=== PATIENT | female | born 1995 | race Caucasian/White ===

== ENCOUNTER 2022-05-13 20:17 | Emergency (ER) | payer BC ==
[~2022-05-13] VITALS: Ht 154.9 cm; Wt 61.2 kg
[2022-05-13 20:21] VITALS: BP_SYST 131
--- NOTE | 2022-05-13 21:50 | NUR ---
Pt brought by family, A&Ox4, pt presents to ER with R lower leg pain x 3 days, pt was sent by PCP to r/o DVT, skin pink and warm, cap refill <3, VSS.
--- NOTE | 2022-05-14 00:31 | NUR ---
Patient to ER CHAIR 1 to gown for evaluation. Side rails up. Report given to Jeanine WEISS(alesha).
--- NOTE | 2022-05-14 00:35 | NUR ---
PT AMB TO ED CHAIR 1 WITH CHARGE NURSE. REPORT FROM ISELA GUNN. PT C/O RLE PAIN X3 DAYS. FANI TRAUMA/ INJURY. RIGHT CALF WARM TO TOUCH. CAP REFILL LESS THAN 0.02SEC EXAM/EVAL PER ER MD
--- NOTE | 2022-05-14 00:40 | NUR ---
NIXON Smith examining patient in the red way.
[2022-05-14] MEDS ORDERED: IBUP-1969 PO (00:41)
[2022-05-14] MEDS ORDERED: IBUPROFEN 600 MG TABLET PO ONE (00:45)
[2022-05-14 00:54] VITALS: BP_SYST 120
== END 2022-05-14 00:54 | disposition home or self-care (01) ==
LOC: SED 20:17
DX: S86.111A Strain of other muscle(s) and tendon(s) of posterior muscle group at lower leg level, right leg, initial encounter (principal); X58.XXXA Exposure to other specified factors, initial encounter; Y93.89 Activity, other specified; Y92.89 Other specified places as the place of occurrence of the external cause; Y99.8 Other external cause status
CPT/HCPCS: 93971; 99284